=== PATIENT | male | born 1980 | race Hispanic/Latino ===

== ENCOUNTER 2018-06-23 22:53 | Emergency (ER) | payer SELFPAY ==
[2018-06-23 23:09] VITALS: TEMP 98
[2018-06-24 01:53] LABS: BASO # 0.1 K/uL (0.0-0.2); BASO % 0.3 % (0.0-2.0); EOS % 0.2 % (0.0-4.0); HEMOGLOBIN 13.8 g/dL (12.0-18.0); LYMPH # 0.9 K/uL (1.0-4.3); LYMPH % 6.4 % (20.0-40.0); MEAN CELL VOLUME 86.9 fl (80.0-94.0); MEAN CORPUSCULAR HEMOGLOBIN 29.1 pg (27.0-31.0); MEAN CORPUSCULAR HGB CONC 33.5 g/dL (33.0-37.0); MEAN PLATELET VOLUME 7.8 fl (7.2-11.7); NEUT # 12.5 K/uL (1.8-7.0); NEUT % 86.1 % (50.0-75.0); PLATELET COUNT 278 K/uL (130-400); RBC 4.72 Mil/uL (4.40-5.90); RED CELL DISTRIBUTION WIDTH 13.1 % (11.5-14.5); WHITE BLOOD COUNT 14.5 K/uL (4.8-10.8)
[2018-06-24 02:02] LABS: ACETAMINOPHEN < 10.0 ug/ml (10.0-30.0); BLOOD UREA NITROGEN 12 mg/dl (9-20); CALCIUM 9.4 mg/dL (8.4-10.2); GFR NON-AFRICAN AMERICAN > 60; SALICYLATE < 1.0 mg/dl
[2018-06-24 03:30] LABS: BANDS 3 % (0-2); LYMPHOCYTE 7 % (20-50); MONOCYTE 6 % (0-10); NEUTROPHIL 82 % (42-75); REACTIVE LYMPHOCYTES 2 % (0-0); TOTAL CELLS COUNTED 100
[2018-06-24 03:31] LABS: LARGE PLATELETS PRESENT; PLATELET ESTIMATE NORMAL (NORMAL)
--- NOTE | 2018-06-24 04:24 | ED PDOC ---
HPI: Psych/Substance Abuse Time Seen by Provider: 06/23/18 23:05 Chief Complaint (Nursing): Psychiatric Evaluation Chief Complaint (Provider): Psychiatric Evaluation ED Caveat: Uncooperative History Per: EMS, Family (Mother) Associated Symptoms: Agitation Additional Complaint(s): 38 years old male with a history of PCP abuse brought to ED via EMS. According to EMS, patient was violent and dangerous at home, throwing objects in the house. Mother states that "he just snapped." Patient is uncooperative and refusing to partaking history or physical exam. PMD: None provided Past Medical History Reviewed: Historical Data, Nursing Documentation, Vital Signs Vital Signs: Last Vital Signs Temp 98.0 F 06/23/18 22:54 Pulse 100 H 06/23/18 22:54 Resp 16 06/23/18 22:54 BP 80/56 L 06/23/18 22:54 Pulse Ox 98 06/23/18 22:54 - Medical History PMH: No Chronic Diseases - Surgical History Surgical History: No Surg Hx - Family History Family History: States: Unknown Family Hx - Social History Alcohol: Social Drugs: Other (PCP) - Allergies Allergies/Adverse Reactions: Allergies Allergy/AdvReac Type Severity Reaction Status Date / Time No Known Allergies Allergy Verified 06/23/18 22:54 Review of Systems ROS Statement: Except As Marked, All Systems Reviewed And Found Negative Psych: Positive for: Other (Agitation and violence) Physical Exam - Reviewed Nursing Documentation Reviewed: Yes Vital Signs Reviewed: Yes - Physical Exam Appears: Negative for: Non-toxic Head Exam: Positive for: ATRAUMATIC, NORMOCEPHALIC Skin: Positive for: Normal Color, Warm, Dry Neck: Positive for: Normal, Painless ROM, Supple Extremity: Positive for: Normal ROM Neurological/Psych: Positive for: Awake, Alert, Oriented (unable to assess), Other (Uncooperative) - Laboratory Results Result Diagrams: 06/24/18 01:45 06/24/18 01:45 - ECG O2 Sat by Pulse Oximetry: 98 (RA) Pulse Ox Interpretation: Normal Medical Decision Making Medical Decision Making: Time: 2331 A/P: Drug abuse vs. organic psychiatric illness --Attempted to redirect patient several times, agitation escalated --Patient possessed danger to himself and others requiring chemical and physical sedation 200 --Patient is on monitor, no ectopy, resting comfortably 0400 --No acute changes, resting comfortobaly, will continue to monitor 0700 --Will endorse to Dr. Elaine pending sobriety, re-evaluation, and crisis eval --------- -------- ScribeAttestation: Documented byMaris Oseguera, acting as a scribe for Melquiades Fuentes MD. Provider ScribeAttestation: All medical record entries made by the Scribe were at my direction and personally dictated by me. I have reviewed the chart and agree that the record accurately reflects my personal performance of the history, physical exam, medical decision making, and the department course for this patient. I have also personally directed, reviewed, and agree with the discharge instructions and disposition. Disposition - Clinical Impression Clinical Impression: Substance abuse - Patient ED Disposition Is Patient to be Admitted: Transfer of Care - Disposition Referrals: Alcoholics Anonymous [Outside] Disposition: Transfer of Care Disposition Time: 07:00 Condition: IMPROVED Additional Instructions: Seek professional help to stop using drugs/alcohol. Follow up with primary medical doctor. Instructions: Alcohol Use - When Is Drinking a Problem?, Drug Abuse and Drug Addiction (DC) Forms: Geneva Mars (Uzbek) Print Language: GABONESE Patient Signed Over To: Gabriela Elaien Handoff Comments: pending re-eval, crisis, clinical sobriety
[2018-06-24 07:44] VITALS: BP 118/94; PULSE 77; RESP 17
[2018-06-24 07:46] LABS: BARBITURATES, UR NEGATIVE (NEGATIVE); BENZODIAZEPINES, UR NEGATIVE (NEGATIVE); OPIATES, UR NEGATIVE (NEGATIVE); PHENCYCLIDINE, UR POSITIVE (NEGATIVE)
[2018-06-24 07:51] LABS: URINE BILIRUBIN NEGATIVE (NEGATIVE); URINE BLOOD NEGATIVE (NEGATIVE); URINE CLARITY CLEAR (Clear); URINE COLOR STRAW (YELLOW); URINE GLUCOSE (UA) NEG (NEGATIVE); URINE HYALINE CAST 0-2 /hpf (0-2); URINE LEUKOCYTE ESTERASE NEG Leu/uL (Negative); URINE PROTEIN NEGATIVE (NEGATIVE); URINE UROBILINOGEN 0.2-1.0 mg/dL (0.2-1.0)
--- NOTE | 2018-06-24 07:58 | ED PDOC ---
- Laboratory Results Result Diagrams: 06/24/18 01:45 06/24/18 01:45 - ECG O2 Sat by Pulse Oximetry: 94 (RA) Pulse Ox Interpretation: Normal Medical Decision Making Medical Decision Makin:00 Patient signed out to this provider by Dr. Fuentes. Patient is a known PCP abuser presenting with aggression/ for psychiatric evaluation requiring restraints and medical sedation. On evaluation, patient is currently asleep. Crisis evaluation placed. Patient is pending sobriety, alertness and crisis evaluation. 08:48 Patient is agitated in the ED, threatening to leave and rip out IV. Multiple attempts at deescalating unsuccessful. Inability to de-escalate required use of restraints and medications for relief of agitation. 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 ----- Scribe Attestation: Documented by Chelsea Sabillon, acting as a scribe Dayron Elaine MD Provider Scribe Attestation: All medical record entries made by the Scribe were at my direction and personally dictated by me. I have reviewed the chart and agree that the record accurately reflects my personal performance of the history, physical exam, medical decision making, and the department course for this patient. I have also personally directed, reviewed, and agree with the discharge instructions and di sposition. Disposition - Clinical Impression Clinical Impression: Substance abuse - Disposition Referrals: Alcoholics Anonymous [Outside] Disposition: Routine/Home Disposition Time: 11:20 Additional Instructions: Seek professional help to stop using drugs/alcohol. Follow up with primary medical doctor. Instructions: Alcohol Use - When Is Drinking a Problem?, Drug Abuse and Drug Addiction (DC) Forms: [employer] (Romansh) Print Language: ICELANDIC
--- NOTE | 2018-06-24 11:58 | CP.PCM.CON ---
History of Present Illness - History of Present Illness History of Present Illness: Psychiatry consult note CC: "I'm fine. I don't need to be here." HPI: 38 yo male w/ h/o PCP and marijuana abuse, presented acutely agitated in the context of acute intoxication of PCP (Utox + for PCP and marijuana). Patient currently calm and cooperative. He denies acute depression/anxiety/AH/VH/SI/HI/paranoia/delusions. Patient currently A + O x 4, without any acute psychiatric or medical complaint. Patient is currently m inimizing his substance abuse. Psychoeducation provided on the danger of substance abuse. Patient is not agreeable to inpatient psychiatric treatment at this time. PMHx: Denies chronic medical conditions ALL: NKDA MSE: A + O x 4, calm, cooperative, speech normal, good eye contact, mood/affect neutral, thought process-linear/coherent, thought content- no delusions, no AH/VH/SI/HI; poor I/J re: chronic substance abuse Impression: 38 yo male w/ PCP Use Disorder, currently calm w/o any acute p sychiatric complaints, is not agreeable to psychiatric admission and does not meet criteria for involuntary psychiatric commitment at this time. -Patient is psychiatrically clear for discharge at this time Past Patient History - Past Social History Alcohol: Social Drugs: Other (PCP) - PSYCHIATRIC Hx Substance Use: Yes - SURGICAL HISTORY Hx Surgeries: No (unable to obtain) - ANESTHESIA Hx Anesthesia: No Meds Allergies/Adverse Reactions: Allergies Allergy/AdvReac Type Severity Reaction Status Date / Time No Known Allergies Allergy Verified 06/23/18 22:54 Results - Vital Signs Recent Vital Signs: Last Vital Signs Temp 98.0 F 06/23/18 22:54 Pulse 77 06/24/18 06:36 Resp 17 06/24/18 06:36 BP 118/94 H 06/24/18 06:36 Pulse Ox 94 L 06/24/18 11:21 - Labs Result Diagrams: 06/24/18 01:45 06/24/18 01:45 Labs: Laboratory Results - last 24 hr 06/24/18 06/24/18 06/24/18 01:45 01:45 01:45 WBC 14.5 H RBC 4.72 Hgb 13.8 Hct 41.0 MCV 86.9 MCH 29.1 MCHC 33.5 RDW 13.1 Plt Count 278 MPV 7.8 Neut % (Auto) 86.1 H Lymph % (Auto) 6.4 L [place] % (Auto) 7.0 Eos % (Auto) 0.2 Baso % (Auto) 0.3 Neut # (Auto) 12.5 H Lymph # (Auto) 0.9 L [place] # (Auto) 1.0 H Eos # (Auto) 0.0 Baso # (Auto) 0.1 Neutrophils % (Manual) 82 H Band Neutrophils % 3 H Lymphocytes % (Manual) 7 L Reactive Lymphs % 2 H Monocytes % (Manual) 6 Platelet Estimate Normal Large Platelets Present Sodium 134 Potassium 3.4 L Chloride 98 Carbon Dioxide 27 Anion Gap 12 BUN 12 Creatinine 1.0 Est GFR ( Amer) > 60 Est GFR (Non-Af Amer) > 60 Random Glucose 74 L Calcium 9.4 Urine Color Urine Clarity Urine pH Ur Specific [place] Urine Protein Urine Glucose (UA) Urine Ketones Urine Blood Urine Nitrate Urine Bilirubin Urine Urobilinogen Ur Leukocyte Esterase Urine RBC (Auto) Urine Microscopic WBC Hyaline Casts Salicylates < 1.0 Urine Opiates Screen Urine Methadone Screen Acetaminophen < 10.0 L Ur Barbiturates Screen Ur Phencyclidine Scrn Ur Amphetamines Screen U Benzodiazepines Scrn U Oth Cocaine Metabols U Cannabinoids Screen Alcohol, Quantitative < 10 06/24/18 06/24/18 06:52 06:52 WBC RBC Hgb Hct MCV MCH MCHC RDW Plt Count MPV Neut % (Auto) Lymph % (Auto) [place] % (Auto) Eos % (Auto) Baso % (Auto) Neut # (Auto) Lymph # (Auto) [place] # (Auto) Eos # (Auto) Baso # (Auto) Neutrophils % (Manual) Band Neutrophils % Lymphocytes % (Manual) Reactive Lymphs % Monocytes % (Manual) Platelet Estimate Large Platelets Sodium Potassium Chloride Carbon Dioxide Anion Gap BUN Creatinine Est GFR ( Amer) Est GFR (Non-Af Amer) Random Glucose Calcium Urine Color Straw Urine Clarity Clear Urine pH 6.0 Ur Specific [place] 1.006 Urine Protein Negative Urine Glucose (UA) Neg Urine Ketones Negative Urine Blood Negative Urine Nitrate Negative Urine Bilirubin Negative Urine Urobilinogen 0.2-1.0 Ur Leukocyte Esterase Neg Urine RBC (Auto) 1 Urine Microscopic WBC 1 Hyaline Casts 0-2 Salicylates Urine Opiates Screen Negative Urine Methadone Screen Negative Acetaminophen Ur Barbiturates Screen Negative Ur Phencyclidine Scrn Positive H Ur Amphetamines Screen Negative U Benzodiazepines Scrn Negative U Oth Cocaine Metabols Negative U Cannabinoids Screen Positive H Alcohol, Quantitative
[2018-06-24 19:26] VITALS: O2SAT 98
== END 2018-06-24 11:58 | disposition home or self-care (01) ==
LOC: H.ER 22:53
DX: F12.10 Cannabis abuse, uncomplicated (principal)
CPT/HCPCS: 80048; 81003; 85025; 96372; 99285; G0480; J1630; J2060